=== PATIENT | female | born 1965 | race Caucasian/White ===

== ENCOUNTER → 2016-05-27 | Outpatient (CLI) | payer BC ==
[~2016-05-27] MED LIST: ATORVASTATIN CA10 MG PO; BENADRYL PO; GLUCOTEN CAPLET1 TAB PO; LORTAB 7.51 TAB PO; NITROGLYGERIN0.4 MG SL; PREDNISONE PO; PRILOSEC40 MG PO; PROZAC PO; SPIRONOLACTONE100 MG PO; TAGAMET300 MG PO; VIT C PO; VITAMIN C100 MG PO; ZINC SULFATE PO; [UNRECOGNIZED DRUG - REMARK]
--- NOTE | ~2016-05-27 | MY11 ---
[facility] A Service of [facility] RADIOLOGY TEXT RESULTS PATIENT: PRIYA MORENO LOCATION: [facility] : 67 UNIT #: [id number] AGE: [address]: Ally Payne APRN SEX: F ORDER DR: [id number] [facility] [address] [place], [place] [address] [id number] O MR#: [id number] Acc #: [id number] NAME: PRIYA MORENO : 1965 SEX: F STUDY DATE/TIME: 05/27/2016 11:50 UNIT: [facility] ROOM: STUDY DESCRIPTION: MY Mammogram Screening Dig [place] Attending Physician: Ally Payne A.P.R.N. Ordering Physician: Ally Payne A.P.R.N. Primary Care Physician: Tatum Massey M.D. MEDICAL IMAGING REPORT This report is preliminary unless electronic signature is present EXAM Screening mammogram, 05/27 INDICATION 51 year old with no personal history but a positive family history of breast cancer. No current complaints. FINDINGS Routine digital screening views of both breasts were obtained. Study is reviewed an FDA-approved CAD device. Comparison made with 06/06/2014, 05/31/2013, 08/06/2011. Breast parenchyma shows scattered fibroglandular densities. No new masses or suspicious microcalcifications are seen. Benign intramammary lymph nodes in both upper outer quadrants appear stable. IMPRESSION Benign mammogram. Routine screen in 1 year recommended. Patients over the age of 40 are entered into a reminder system with target due date for the next mammogram. A result letter will also be sent to the patient. BIRADS: 2 Benign finding. Dictated by... Kevan Maloney Jr., M.D. THIS IS AN ELECTRONICALLY VERIFIED REPORT Kevan Maloney Jr., M.D. at 05/27/2016 4:52 PM [id number] [facility] A Service of [facility] RADIOLOGY TEXT RESULTS PATIENT: PRIYA MORENO LOCATION: [facility] #: [id number] : 67 UNIT #: [id number] AGE: [address]: Ally Payne APRN SEX: F ORDER DR: TD: 05/27/2016 14:21 JOB #: [id number] MEDICAL IMAGING REPORT COPY
== END | disposition home or self-care (01) ==
LOC: CWCC 11:21
DX: Z12.31 Encounter for screening mammogram for malignant neoplasm of breast (principal); Z80.3 Family history of malignant neoplasm of breast
CPT/HCPCS: G0202

== ENCOUNTER → 2016-12-02 | Outpatient (CLI) | payer BC ==
--- NOTE | ~2016-12-02 | CT2 ---
[facility] A Service of [facility] RADIOLOGY TEXT RESULTS PATIENT: PRIYA MORENO LOCATION: [facility] : 67 UNIT #: [id number] AGE: [address]: Tatum Massey MD SEX: F ORDER DR: [id number] [place] [id number] O MR#: [id number] Acc #: [id number] NAME: PRIYA MORENO : 1965 SEX: F STUDY DATE/TIME: 12/02/2016 12:00 UNIT: [facility] ROOM: STUDY DESCRIPTION: CT Abd and Pelv W Cont Attending Physician: Tatum Massey M.D. Referring Physician: Tatum Massey M.D. Ordering Physician: Tatum Massey M.D. Primary Care Physician: Tatum Massey M.D. MEDICAL IMAGING REPORT This report is preliminary unless electronic signature is present. EXAM CT abdomen and pelvis with contrast INDICATIONS Right lower quadrant pain for [address] of the abdomen and pelvis was performed following the administration of oral and IV contrast. Coronal and sagittal reformatted images were obtained. This CT exam was performed with one or more of the following radiation dose reduction techniques: automatic exposure control, adjustment of mA and/or kV according to patient size, and iterative reconstruction. COMPARISON 03/12/2013 FINDINGS There is a large hiatal hernia. The liver is unremarkable. Cholecystectomy. The spleen is unremarkable. There is a cyst in the upper pole of the left kidney. There may be tiny nonobstructing stones in the lower poles of both kidneys. The adrenal glands are unremarkable. The pancreas is unremarkable. Pelvis: The colon is unremarkable. The appendix is not visualized. No free fluid pelvis. No evidence of pelvic mass or adenopathy. Bone windows are unremarkable. IMPRESSION 1. Large hiatal hernia. 2. Possible tiny bilateral nonobstructing renal stones. 3. Cholecystectomy. [facility] A Service of [facility] RADIOLOGY TEXT RESULTS PATIENT: PRIYA MORENO LOCATION: [facility] : 67 UNIT #: [id number] AGE: [address]: Tatum Massey MD SEX: F ORDER DR: Dictated by... Sagar Loya M.D. THIS IS AN ELECTRONICALLY VERIFIED REPORT Sagar Loya M.D. at 12/08/2016 11:21 AM ARS/to TD: 12/03/2016 16:01 JOB #: [id number] MEDICAL IMAGING REPORT Page 1 of 1
== END | disposition home or self-care (01) ==
LOC: SCT 10:52
DX: R10.31 Right lower quadrant pain (principal); K44.9 Diaphragmatic hernia without obstruction or gangrene; Z90.49 Acquired absence of other specified parts of digestive tract
CPT/HCPCS: 74177; Q9967